=== PATIENT | female | born 1950 | race Caucasian/White ===

== ENCOUNTER → 2023-10-08 09:46 | Outpatient (REF) | payer MEDICARE, SELFPAY ==
[2023-10-08 12:50] LABS: CEA 1.14 ng/ml
== END ==
LOC: HWLAB 09:46
PROVIDERS: ATTENDING PHYSICIAN Registered Nurse Oncology; FAMILY PHYSICIAN Family Medicine
DX: C18.2 Malignant neoplasm of ascending colon (principal)
CPT/HCPCS: 36415; 82378

== ENCOUNTER → 2024-01-05 08:30 | Outpatient (REF) | payer MEDICARE, SELFPAY ==
[2024-01-05 12:25] LABS: % Eosinophils 3.6 % (0-6); % Immature Granulocytes 0.3 % (0-0.5); % Lymphocytes 34.1 % (20.5-51.1); % Monocytes 7.3 % (1.7-9.3); % Neutrophils 53.7 % (42.2-75.2); Absolute Basophils 0.1 10^3/uL (0-0.2); Absolute Eosinophils 0.2 10^3/uL (0-0.7); Absolute Lymphocytes 2.1 10^3/uL (1.2-3.4); Absolute Monocytes 0.5 10^3/uL (0.1-0.6); Absolute Neutrophils 3.3 10^3/uL (1.4-6.5); Hematocrit 40.4 % (37.0-47.0); Hemoglobin 13.6 g/dL (12.0-16.0); Mean Corp Hgb Conc. 33.7 g/dL (33.0-37.0); Mean Corpuscular Hgb 29.5 pg (27.0-31.0); Mean Corpuscular Volume 87.6 fL (81.0-99.0); Mean Platelet Volume 9.4 fL (7.4-10.4); Nucleated Red Blood Cells % 0 %; Platelet Count 269 10^3/uL (130-400); Red Blood Cell Count 4.61 10^6/uL (4.20-5.40); Red Cell Dist. Width 13.2 % (11.5-14.5); White Blood Cell Count 6.2 10^3/uL (4.8-10.8)
[2024-01-05 12:50] LABS: Vitamin D, 25-OH*** 43.8 ng/mL (30-80)
[2024-01-05 12:51] LABS: ALT (SGPT) 21 U/L (0-35); AST (SGOT) 28 U/L (14-36); Alkaline Phosphatase 99 U/L (38-126); Blood Urea Nitrogen 11 mg/dl (7-17); Calcium 9.1 mg/dl (8.4-10.2); Carbon Dioxide 27 mmol/L (22-30); Chloride 103 mmol/L (98-107); Glucose 89 mg/dl (70-99); HDL Cholesterol 61 mg/dl; LDL Cholesterol, Calculated 139 mg/dl; Potassium 4.1 mmol/L (3.5-5.1); Sodium 135 mmol/L (135-145); Total Bilirubin 0.7 mg/dl (0.2-1.3); Total Cholesterol 224 mg/dl (50-199); Total Protein 7.1 g/dl (6.3-8.2); Triglyceride 124 mg/dl (10-149); Very Low Density Lipoprotein 24 mg/dl (0-30); eGFR > 60.00
[2024-01-05 13:04] LABS: CEA 1.07 ng/ml
== END ==
LOC: HWLAB 08:30
PROVIDERS: ATTENDING PHYSICIAN Family Medicine
DX: K50.918 Crohn's disease, unspecified, with other complication (principal); M81.0 Age-related osteoporosis without current pathological fracture; Z85.038 Personal history of other malignant neoplasm of large intestine; Z13.220 Encounter for screening for lipoid disorders
CPT/HCPCS: 36415; 80053; 80061; 82306; 82378; 85025

== ENCOUNTER → 2024-02-18 11:03 | Outpatient (REF) | payer MEDICARE, SELFPAY | LOC: REG 11:03 | PROVIDERS: ATTENDING PHYSICIAN Otolaryngology; FAMILY PHYSICIAN Family Medicine | DX: R09.82 Postnasal drip (principal) | CPT/HCPCS: 70210 ==

== ENCOUNTER → 2024-04-18 12:36 | Outpatient (REF) | payer MEDICARE, SELFPAY ==
[2024-04-18 15:18] LABS: % Eosinophils 3.1 % (0-6); % Immature Granulocytes 0.3 % (0-0.5); % Monocytes 7.3 % (1.7-9.3); % Neutrophils 56.3 % (42.2-75.2); Absolute Basophils 0.1 10^3/uL (0-0.2); Absolute Eosinophils 0.2 10^3/uL (0-0.7); Absolute Lymphocytes 2.3 10^3/uL (1.2-3.4); Absolute Monocytes 0.5 10^3/uL (0.1-0.6); Hematocrit 39.1 % (37.0-47.0); Hemoglobin 13.4 g/dL (12.0-16.0); Mean Corp Hgb Conc. 34.3 g/dL (33.0-37.0); Mean Corpuscular Volume 84.6 fL (81.0-99.0); Mean Platelet Volume 9.6 fL (7.4-10.4); Nucleated Red Blood Cells % 0 %; Platelet Count 275 10^3/uL (130-400); Red Blood Cell Count 4.62 10^6/uL (4.20-5.40); White Blood Cell Count 7.1 10^3/uL (4.8-10.8)
[2024-04-18 15:32] LABS: ALT (SGPT) 25 U/L (0-35); AST (SGOT) 30 U/L (14-36); Albumin 4.1 g/dl (3.5-5.0); Alkaline Phosphatase 100 U/L (38-126); Blood Urea Nitrogen 17 mg/dl (7-17); Calcium 9.8 mg/dl (8.4-10.2); Carbon Dioxide 29 mmol/L (22-30); Chloride 102 mmol/L (98-107); Glucose 90 mg/dl (70-99); Potassium 4.8 mmol/L (3.5-5.1); Sodium 136 mmol/L (135-145); Total Bilirubin 0.3 mg/dl (0.2-1.3); Total Protein 7.1 g/dl (6.3-8.2); eGFR > 60.00
== END ==
LOC: HWLAB 12:36
PROVIDERS: ATTENDING PHYSICIAN Specialist; FAMILY PHYSICIAN Family Medicine
DX: C18.9 Malignant neoplasm of colon, unspecified (principal)
CPT/HCPCS: 36415; 80053; 82378; 85025

== ENCOUNTER → 2024-07-06 08:25 | Outpatient (REF) | payer MEDICARE, SELFPAY ==
[2024-07-06 09:22] LABS: % Basophils 0.9 % (0-2); % Eosinophils 3.7 % (0-6); % Immature Granulocytes 0.2 % (0-0.5); % Lymphocytes 37.9 % (20.5-51.1); % Monocytes 6.9 % (1.7-9.3); % Neutrophils 50.4 % (42.2-75.2); Absolute Basophils 0.1 10^3/uL (0-0.2); Absolute Eosinophils 0.2 10^3/uL (0-0.7); Absolute Lymphocytes 2.1 10^3/uL (1.2-3.4); Absolute Monocytes 0.4 10^3/uL (0.1-0.6); Absolute Neutrophils 2.8 10^3/uL (1.4-6.5); Hematocrit 40.4 % (37.0-47.0); Hemoglobin 13.7 g/dL (12.0-16.0); Mean Corp Hgb Conc. 33.9 g/dL (33.0-37.0); Mean Corpuscular Hgb 28.6 pg (27.0-31.0); Mean Corpuscular Volume 84.3 fL (81.0-99.0); Mean Platelet Volume 8.9 fL (7.4-10.4); Nucleated Red Blood Cells % 0 %; Platelet Count 272 10^3/uL (130-400); Red Blood Cell Count 4.79 10^6/uL (4.20-5.40); Red Cell Dist. Width 13.3 % (11.5-14.5); White Blood Cell Count 5.6 10^3/uL (4.8-10.8)
[2024-07-06 11:17] LABS: ALT (SGPT) 25 U/L (0-35); AST (SGOT) 30 U/L (14-36); Albumin 4.2 g/dl (3.5-5.0); Alkaline Phosphatase 90 U/L (38-126); Blood Urea Nitrogen 15 mg/dl (7-17); Calcium 9.6 mg/dl (8.4-10.2); Carbon Dioxide 29 mmol/L (22-30); Chloride 105 mmol/L (98-107); Glucose 85 mg/dl (70-99); HDL Cholesterol 71 mg/dl; LDL Cholesterol, Calculated 140 mg/dl; Potassium 4.7 mmol/L (3.5-5.1); Sodium 141 mmol/L (135-145); Total Bilirubin 0.5 mg/dl (0.2-1.3); Total Cholesterol 232 mg/dl (50-199); Total Protein 6.9 g/dl (6.3-8.2); Triglyceride 108 mg/dl (10-149); Very Low Density Lipoprotein 21 mg/dl (0-30); eGFR > 60.00
[2024-07-06 11:41] LABS: CEA 1.15 ng/ml
== END ==
LOC: HWLAB 08:25
PROVIDERS: ATTENDING PHYSICIAN Family Medicine
DX: Z13.220 Encounter for screening for lipoid disorders (principal); M81.0 Age-related osteoporosis without current pathological fracture; Z85.038 Personal history of other malignant neoplasm of large intestine
CPT/HCPCS: 36415; 80053; 80061; 82306; 82378; 85025

== ENCOUNTER → 2024-09-13 13:58 | Outpatient (REF) | payer MEDICARE, SELFPAY | LOC: HWWDC 13:58 | PROVIDERS: ATTENDING PHYSICIAN Family Medicine | DX: M81.0 Age-related osteoporosis without current pathological fracture (principal); Z78.0 Asymptomatic menopausal state; Z12.31 Encounter for screening mammogram for malignant neoplasm of breast | CPT/HCPCS: 77063; 77067; 77080 ==

== ENCOUNTER → 2024-11-22 12:18 | Outpatient (REF) | payer OTHER, SELFPAY ==
[2024-11-22 16:47] LABS: % Basophils 0.9 % (0-2); % Eosinophils 3.3 % (0-6); % Immature Granulocytes 0.2 % (0-0.5); % Lymphocytes 30.8 % (20.5-51.1); % Monocytes 6.7 % (1.7-9.3); % Neutrophils 58.1 % (42.2-75.2); Absolute Basophils 0.1 10^3/uL (0-0.2); Absolute Eosinophils 0.3 10^3/uL (0-0.7); Absolute Lymphocytes 2.7 10^3/uL (1.2-3.4); Absolute Monocytes 0.6 10^3/uL (0.1-0.6); Absolute Neutrophils 5.1 10^3/uL (1.4-6.5); Hematocrit 42.7 % (37.0-47.0); Mean Corp Hgb Conc. 32.8 g/dL (33.0-37.0); Mean Corpuscular Hgb 29.2 pg (27.0-31.0); Mean Corpuscular Volume 89.1 fL (81.0-99.0); Mean Platelet Volume 9.9 fL (7.4-10.4); Nucleated Red Blood Cells % 0 %; Platelet Count 271 10^3/uL (130-400); Red Blood Cell Count 4.79 10^6/uL (4.20-5.40); Red Cell Dist. Width 13.1 % (11.5-14.5); White Blood Cell Count 8.8 10^3/uL (4.8-10.8)
[2024-11-22 16:56] LABS: ALT (SGPT) 23 U/L (0-35); AST (SGOT) 28 U/L (14-36); Albumin 4.3 g/dl (3.5-5.0); Alkaline Phosphatase 91 U/L (38-126); Blood Urea Nitrogen 14 mg/dl (7-17); Calcium 9.9 mg/dl (8.4-10.2); Carbon Dioxide 28 mmol/L (22-30); Chloride 99 mmol/L (98-107); Glucose 93 mg/dl (70-99); Iron 125 ug/dl (37-170); Potassium 4.5 mmol/L (3.5-5.1); Sodium 135 mmol/L (135-145); Total Bilirubin 0.4 mg/dl (0.2-1.3); Total Protein 7.3 g/dl (6.3-8.2); eGFR > 60.00
[2024-11-22 17:24] LABS: CEA 2.12 ng/ml
[2024-11-22 17:36] LABS: Ferritin 36.3 ng/ml (11.1-264.0)
== END ==
LOC: HWLAB 12:18
PROVIDERS: ATTENDING PHYSICIAN Family Medicine
DX: K50.918 Crohn's disease, unspecified, with other complication (principal); R06.09 Other forms of dyspnea; Z85.038 Personal history of other malignant neoplasm of large intestine
CPT/HCPCS: 36415; 80053; 82378; 82728; 83540; 85025

== ENCOUNTER → 2024-12-15 11:39 | Outpatient (REF) | payer OTHER, SELFPAY | LOC: RAD 11:39 | PROVIDERS: ATTENDING PHYSICIAN Family Medicine | DX: R06.09 Other forms of dyspnea (principal); Z87.891 Personal history of nicotine dependence | CPT/HCPCS: 71260; Q9967 ==

== ENCOUNTER → 2025-07-10 08:57 | Outpatient (REF) | payer OTHER, SELFPAY ==
[2025-07-10 12:10] LABS: Hematocrit 41.1 % (37.0-47.0); Hemoglobin 13.4 g/dL (12.0-16.0); Mean Corp Hgb Conc. 32.6 g/dL (33.0-37.0); Mean Corpuscular Volume 87.8 fL (81.0-99.0); Nucleated Red Blood Cells % 0 %; Platelet Count 239 10^3/uL (130-400); Red Cell Dist. Width 13.2 % (11.5-14.5)
[2025-07-10 12:18] LABS: ALT (SGPT) 29 U/L (0-35); AST (SGOT) 31 U/L (14-36); Albumin 4.2 g/dl (3.5-5.0); Alkaline Phosphatase 74 U/L (38-126); Blood Urea Nitrogen 11 mg/dl (7-17); Calcium 10.1 mg/dl (8.4-10.2); Carbon Dioxide 28 mmol/L (22-30); Chloride 108 mmol/L (98-107); Glucose 93 mg/dl (70-99); HDL Cholesterol 66 mg/dl; LDL Cholesterol, Calculated 140 mg/dl; Potassium 5.0 mmol/L (3.5-5.1); Sodium 139 mmol/L (135-145); Total Protein 7.0 g/dl (6.3-8.2); Very Low Density Lipoprotein 26 mg/dl (0-30); eGFR > 60.00
[2025-07-10 12:45] LABS: CEA 2.05 ng/ml
== END ==
LOC: HWLAB 08:57
PROVIDERS: ATTENDING PHYSICIAN Family Medicine
DX: E78.00 Pure hypercholesterolemia, unspecified (principal); K50.918 Crohn's disease, unspecified, with other complication; Z85.038 Personal history of other malignant neoplasm of large intestine
CPT/HCPCS: 36415; 80053; 80061; 82378; 85025

== ENCOUNTER → 2025-10-02 10:09 | Outpatient (REF) | payer OTHER, SELFPAY | LOC: HWWDC 10:09 | PROVIDERS: ATTENDING PHYSICIAN Family Medicine | DX: Z12.31 Encounter for screening mammogram for malignant neoplasm of breast (principal) | CPT/HCPCS: 77063; 77067 ==